=== PATIENT | female | born 1950 | race African-American/Black ===

== ENCOUNTER 2024-09-24 06:04 | Day surgery (SDC) | payer MEDICARE ==
[2024-09-23 11:13] VITALS: BMI 27.6
[2024-09-24] MEDS ORDERED: HEPARIN NA (PORCINE) 5,000 UNITS/ML 1ML VIAL ONE (07:18)
[2024-09-24] MEDS ORDERED: LIDOCAINE HCL 1%, 10 MG/ML (20ML VIAL) ONE (07:18)
[2024-09-24] MEDS ORDERED: MIDAZOLAM HCL 2 MG/2 ML SINGLE DOSE VIAL ONE (07:29)
[2024-09-24] MEDS ORDERED: PROPOFOL 20 ML ONE (07:29)
[2024-09-24] MEDS ORDERED: LIDOCAINE HCL/PF 2% SDV 5ML VIAL ONE (07:29)
[2024-09-24] MEDS ORDERED: PROPOFOL 60 ML ONE (08:07)
[2024-09-24] MEDS ORDERED: ceFAZolin SODIUM 1 GM VIAL ONE ×2 (08:10→10:33)
[2024-09-24] MEDS: ceFAZolin 2 GRAM PREMIX BAG IVPB ONE ×2 (08:10)
[2024-09-24] MEDS: LIDOCAINE HCL 1%, 10 MG/ML (20ML VIAL) INF ONE ×2 (08:27)
[2024-09-24] MEDS ORDERED: PROMETHAZINE HCL 25 MG/1 ML VIAL IVPB PRN (09:09)
[2024-09-24] MEDS ORDERED: ONDANSETRON 4 MG/2 ML VIAL IVPUSH PRN (09:09)
[2024-09-24] MEDS ORDERED: oxyCODONE HCL 5 MG TABLET PO PRN ×2 (09:09)
[2024-09-24] MEDS ORDERED: LACTATED RINGERS SOLUTION 1,000 ML IV SCH (09:15)
[2024-09-24] MEDS ORDERED: ONDANSETRON 4 MG/2 ML VIAL ONE ×2 (09:38→10:33)
[2024-09-24] MEDS: ACETAMINOPHEN INJECTION 100 ML ONE (09:47)
[2024-09-24] MEDS: ACETAMINOPHEN 1000 MG/100 ML BAG IVPB ONE (10:10)
[2024-09-24] MEDS ORDERED: DEXAMETHASONE SOD PHOSPHATE 4 MG/1 ML VIAL ONE (10:33)
[2024-09-24] MEDS ORDERED: KETOROLAC TROMETHAMINE 30 MG/1 ML VIAL ONE (10:33)
[2024-09-24] MEDS ORDERED: ROCURONIUM BROMIDE 50 MG/5 ML SYRINGE ONE (10:37)
[2024-09-24 11:10] VITALS: RESP 16
[2024-09-24 11:59] VITALS: BP 135/65; PULSE 72; TEMP 97.6
== END 2024-09-24 11:45 | disposition home or self-care (01) ==
LOC: JASU-SURG 06:04
PROVIDERS: ATTEND Surgery
PROC: 03180ZD Bypass Left Brachial Artery to Upper Arm Vein, Open Approach (ICD-10-PCS; principal; 2024-09-24 08:00)
DX: I12.0 Hypertensive chronic kidney disease with stage 5 chronic kidney disease or end stage renal disease (principal); E11.22 Type 2 diabetes mellitus with diabetic chronic kidney disease; N18.6 End stage renal disease; Z79.4 Long term (current) use of insulin
CPT/HCPCS: 82962; 94760; J0131; J1644

== ENCOUNTER 2024-11-12 06:34 | Day surgery (SDC) | payer MEDICARE ==
[2024-11-09 16:37] VITALS: BMI 28.0
[2024-11-12 06:45] VITALS: BP 138/69; PULSE 73; RESP 16; TEMP 98.5
[2024-11-12] MEDS ORDERED: LIDOCAINE HCL 1%, 10 MG/ML (20ML VIAL) ONE (07:50)
[2024-11-12] MEDS ORDERED: HEPARIN NA (PORCINE) 5,000 UNITS/ML 1ML VIAL ONE (07:51)
[2024-11-12] MEDS ORDERED: PROPOFOL 60 ML ONE (10:56)
== END 2024-11-12 12:20 | disposition home or self-care (01) ==
LOC: JASU-SURG 06:34
PROVIDERS: ATTEND Surgery
DX: Z53.8 Procedure and treatment not carried out for other reasons (principal)
CPT/HCPCS: 82962

== ENCOUNTER 2024-12-02 07:02 | Day surgery (SDC) | payer MEDICARE ==
[2024-11-30 16:15] VITALS: BMI 28.0
[2024-12-02] MEDS ORDERED: PROTAMINE SULFATE 50 MG/5 ML VIAL ONE (07:30)
[2024-12-02] MEDS ORDERED: HEPARIN NA (PORCINE) 5,000 UNITS/ML 1ML VIAL ONE ×2 (07:30→10:02)
[2024-12-02] MEDS ORDERED: LIDOCAINE HCL 1%, 10 MG/ML (20ML VIAL) ONE ×2 (07:30→10:02)
[2024-12-02] MEDS ORDERED: PAPAVERINE HCL 30 MG/1 ML 10 ML VIAL NR ONE (07:33)
[2024-12-02] MEDS ORDERED: POVIDONE-IODINE OINTMENT 10% - 28.4 GM TUBE ONE (08:45)
[2024-12-02] MEDS ORDERED: LIDOCAINE HCL/PF 2% SDV 5ML VIAL ONE (09:24)
[2024-12-02] MEDS ORDERED: MIDAZOLAM HCL 2 MG/2 ML SINGLE DOSE VIAL ONE (09:25)
[2024-12-02] MEDS ORDERED: PROPOFOL 80 ML ONE (09:25)
[2024-12-02] MEDS ORDERED: DEXAMETHASONE SOD PHOSPHATE 4 MG/1 ML VIAL ONE (10:39)
[2024-12-02] MEDS: LIDOCAINE HCL 1%, 10 MG/ML (50 mL VIAL) INF ONE (10:49)
[2024-12-02] MEDS ORDERED: ONDANSETRON 4 MG/2 ML VIAL IVPUSH PRN (11:03)
[2024-12-02] MEDS ORDERED: PROMETHAZINE HCL 25 MG/1 ML VIAL IVPB PRN (11:03)
[2024-12-02] MEDS ORDERED: KETOROLAC TROMETHAMINE 30 MG/1 ML VIAL ONE (11:36)
[2024-12-02] MEDS ORDERED: ALBUTEROL SO4 0.083% IH SOL 2.5 MG/3 ML VIAL.NEB. NEB ONE (13:03)
[2024-12-02] MEDS: ALBUTEROL SO4 0.083% IH SOL 2.5 MG/3 ML VIAL.NEB. NEB PRN (13:05)
[2024-12-02] MEDS ORDERED: ACETAMINOPHEN INJECTION 100 ML ONE (13:08)
[2024-12-02] MEDS: ACETAMINOPHEN 1000 MG/100 ML BAG IVPB ONE (13:10)
[2024-12-02] MEDS: LACTATED RINGERS SOLUTION 1,000 ML IV SCH (14:41)
[2024-12-02] MEDS ORDERED: SODIUM CHLORIDE 250 ML IV PRN (15:19)
[2024-12-02] MEDS: INSULIN ASPART SLIDING SCALE (NOVOLOG) 1 VIAL SQ SCH (16:21)
[2024-12-02 17:37] VITALS: RESP 18
[2024-12-02 18:04] LABS: CO2 27.0 mmol/L (21-32)
[2024-12-02 18:05] LABS: GLUCOSE,RANDOM 258.0 mg/dL (74-106)
[2024-12-02 18:08] LABS: CREATININE 2.3 mg/dL (0.55-1.3)
[2024-12-02 18:33] LABS: HEPATITIS B SURF AG NON-MATERN NON-REACTIVE (NONREACTIVE)
[2024-12-02 19:55] LABS: HCV DIAGNOSTIC IN-HOUSE W/RFLX NON-REACTIVE (NONREACTIVE)
[2024-12-02] MEDS: ACETAMINOPHEN 500 MG TABLET (FP) PO SCH (21:27)
[2024-12-02] MEDS: ATORVASTATIN CA 40 MG TABLET (FP) PO SCH (21:27)
[2024-12-03] MEDS: LEVOTHYROXINE NA 125 MCG TABLET (FP) PO SCH (06:16)
[2024-12-03] MEDS: FERROUS SO4 325 MG TABLET (FP) PO SCH (09:28)
[2024-12-03] MEDS: ASPIRIN 81 MG CHEWABLE TABLETS PO SCH (09:28)
[2024-12-03] MEDS: ENALAPRIL MALEATE 10 MG TABLET PO SCH (09:28)
[2024-12-03] MEDS: amLODIPine BESYLATE 5 MG TABLET (FP) PO SCH (09:28)
[2024-12-03] MEDS ORDERED: PATIENT'S OWN MEDICATION (NON-FORMULARY) (Ferrous Sulfate [Iron] 325 MG Tablet) PO SCH (10:00)
[2024-12-03] MEDS ORDERED: ALBUTEROL SO4 2.5/IPRATROPIUM 0.5 INH SOL 3 ML VIAL.NEB. NEB ONE (10:30)
[2024-12-03 10:33] LABS: MCHC 29.0 g/dl (32.2-35.5); MEAN CELL VOLUME 101.0 fl (79.4-94.8); MEAN PLT VOLUME 9.4 fl (9.4-12.3); RDW 13.9 % (12.4-16.6)
[2024-12-03 12:03] VITALS: BP 134/84; PULSE 74; TEMP 98.6
[2024-12-03 12:21] LABS: CO2 30.0 mmol/L (21-32); GLUCOSE,RANDOM 255.0 mg/dL (74-106)
[2024-12-03 12:22] LABS: CREATININE 2.1 mg/dL (0.55-1.3)
== END 2024-12-03 11:39 | disposition home or self-care (01) ==
LOC: SUATTDRO 07:02 → JASU-SURG 07:02 → JASUSAT 07:02 → J5S 20:09 → JASUSAT 12-03 11:39
PROVIDERS: ATTEND Student in an Organized Health Care Education/Training Program
PROC: 03180ZD Bypass Left Brachial Artery to Upper Arm Vein, Open Approach (ICD-10-PCS; principal; 2024-12-02 10:00)
DX: I12.0 Hypertensive chronic kidney disease with stage 5 chronic kidney disease or end stage renal disease (principal); E11.22 Type 2 diabetes mellitus with diabetic chronic kidney disease; N18.6 End stage renal disease; Z99.2 Dependence on renal dialysis
CPT/HCPCS: 36415; 71045-TC-FY; 80048; 82962; 85027; 86803; 87340; 87517; 94010; 94640; 94760

== ENCOUNTER → 2025-03-16 | Day surgery (SDC) | payer MEDICARE, OTHER ==
[~2025-03-16] MED LIST: FENTANYL CITRATE/PF 50 MCG/ML VIAL ONE; HEPARIN NA (PORCINE) 5,000 UNITS/ML 1ML VIAL ONE; MIDAZOLAM HCL 2 MG/2 ML SINGLE DOSE VIAL ONE
[2025-03-16] MEDS: FENTANYL CITRATE/PF 50 MCG/ML VIAL IVPUSH ONE (13:31)
[2025-03-16] MEDS: MIDAZOLAM HCL 2 MG/2 ML SINGLE DOSE VIAL IVPUSH ONE (13:31)
[2025-03-17 01:57] VITALS: BP 159/66; PULSE 84; RESP 18; TEMP 97.9
== END | disposition home or self-care (01) ==
LOC: JRADIR 12:17
PROVIDERS: ATTEND Surgery
PROC: 05743ZZ Dilation of Left Innominate Vein, Percutaneous Approach (ICD-10-PCS; principal; 2025-03-16)
PROC: B54NZZ3 Ultrasonography of Left Upper Extremity Veins, Intravascular (ICD-10-PCS; 2025-03-16)
DX: T82.858A Stenosis of other vascular prosthetic devices, implants and grafts, initial encounter (principal); I12.0 Hypertensive chronic kidney disease with stage 5 chronic kidney disease or end stage renal disease; E11.22 Type 2 diabetes mellitus with diabetic chronic kidney disease; N18.6 End stage renal disease; Z99.2 Dependence on renal dialysis
CPT/HCPCS: 37248; 75820-TC-FY